=== PATIENT | female | born 1980 | race Caucasian/White ===

== ENCOUNTER 2020-07-20 10:50 | Emergency (ER) | payer OTHER ==
[~2020-07-20] VITALS: Ht 160 cm; Wt 99.8 kg
[~2020-07-20 10:50] MED LIST: AMOX TR-K CLV1 EAC4; NORCO 5-325 TA1 EACH PO
[2020-07-20] MEDS ORDERED: KEFLEX500 M1 PO (11:27)
[2020-07-20 11:52] VITALS: BP 130/68
== END 2020-07-20 11:52 | disposition home or self-care (01) ==
LOC: ER 10:50
DX: L03.116 Cellulitis of left lower limb (principal); S70.12XD Contusion of left thigh, subsequent encounter; Z98.890 Other specified postprocedural states; Z79.899 Other long term (current) drug therapy; Z79.2 Long term (current) use of antibiotics; V29.9XXD Motorcycle rider (driver) (passenger) injured in unspecified traffic accident, subsequent encounter